=== PATIENT | female | born 1980 | race African-American/Black ===

== ENCOUNTER 2017-05-19 15:52 | Emergency (ER) | payer OTHER ==
[2017-05-19] MEDS ORDERED: Ibuprofen 800 MG TAB ONE (18:27)
== END 2017-05-19 18:35 | disposition home or self-care (01) ==
LOC: ERS 15:52
DX: R07.89 Other chest pain (principal); M94.0 Chondrocostal junction syndrome [Tietze]; Z79.899 Other long term (current) drug therapy
CPT/HCPCS: 93005

== ENCOUNTER 2018-12-02 21:35 | Emergency (ER) | payer OTHER ==
[2018-12-02] MEDS ORDERED: Ibuprofen 200 MG TAB ONE (22:24)
--- NOTE | 2018-12-02 22:47 | RAD ---
4 views of the left knee: 12/02/2018 COMPARISON: None HISTORY: Pain FINDINGS: No fracture or dislocation. No knee joint effusion. IMPRESSION: No acute findings.
== END 2018-12-02 23:20 | disposition home or self-care (01) ==
LOC: ERS 21:35
DX: M25.562 Pain in left knee (principal)